=== PATIENT | male | born 1970 | race Caucasian/White ===

== ENCOUNTER 2024-02-24 17:22 | Emergency (ER) | payer OTHER ==
[~2024-02-24] VITALS: Ht 182.9 cm; Wt 88.6 kg
[2024-02-24 17:43] VITALS: TEMP 98.4
[2024-02-24 18:28] LABS: BASO % 0.3 % (0.0-2.0); EOS # 0.1 K/mm3 (0.0-0.7); EOS % 0.7 % (0.0-4.0); GRAN # 8.9 K/mm3 (1.4-6.5); GRAN % 73.5 % (42.2-75.2); HEMATOCRIT 46.8 % (42.0-52.0); HEMOGLOBIN 16.9 g/dl (13.5-18.0); LYMPH # 2.3 K/mm3 (1.2-3.4); LYMPH % 18.6 % (20.0-51.0); MEAN CELL VOLUME 95 fl (80.0-100.0); MEAN CORPUSCULAR HEMOGLOBIN 34 pg (27-31); MEAN CORPUSCULAR HGB CONC 36 g/dl (33.0-37.0); MEAN PLATELET VOLUME 9.2 fl (7.4-10.4); MONO # 0.8 K/mm3 (0.1-0.6); MONO % 6.7 % (1.7-9.3); PLATELET COUNT 297 K/mm3 (130-400); RED BLOOD COUNT 4.92 M/mm3 (4.20-5.60)
[2024-02-24] MEDS ORDERED: cloNIDine 0.1 MG TAB PO ONE (18:30)
[2024-02-24 18:37] LABS: PROTHROMBIN TIME 10.7 SECONDS (9.7-12.8)
[2024-02-24 18:39] LABS: PARTIAL THROMBOPLASTIN TIME 35.5 SECONDS (26.0-37.0)
[2024-02-24 18:48] LABS: ALBUMIN 4.2 g/dL (3.5-5.0); BILIRUBIN,TOTAL 0.5 mg/dL (0.2-1.2); CALCIUM 10.4 mg/dL (8.4-10.2); CREATININE, serum 0.76 mg/dL (0.72-1.25); MAGNESIUM 2.2 mg/dL (1.6-2.6); POTASSIUM 3.4 mEq/L (3.5-4.5); TOTAL PROTEIN 7.5 g/dl (6.2-8.1)
[2024-02-24 18:59] LABS: TROPONIN-I 0.688 ng/mL (0.00-0.033)
[2024-02-24] MEDS ORDERED: Nitroglycerin/D5W 250 ML IV ONE (19:15)
[2024-02-24] MEDS ORDERED: Heparin 5,000 UNITS/ML 1 ML VIAL IV ONE (21:00)
[2024-02-24] MEDS ORDERED: Heparin 5,000 UNITS/ML 1 ML VIAL IV PRN (21:00)
[2024-02-24] MEDS ORDERED: Heparin/D5W 250 ML IV SCH (21:00)
[2024-02-24 22:40] VITALS: BP 138/91; PULSE 79
== END 2024-02-24 22:45 | disposition short-term general hospital (02) ==
LOC: COL.ER 17:22
PROVIDERS: Family Medicine
DX: I10 Essential (primary) hypertension (principal); Z79.899 Other long term (current) drug therapy
CPT/HCPCS: J1644; J2305